=== PATIENT | male | born 1965 | race Caucasian/White ===

== ENCOUNTER 2021-02-12 09:23 | Emergency (ER) | payer OTHER ==
[2021-02-12 10:58] LABS: HEMOGLOBIN 14.7 gm/dl (14.0-17.5); RED BLOOD COUNT 4.9 M/UL (4.20-5.50); WHITE BLOOD COUNT 8.2 K/UL (4.5-11.0)
[2021-02-12 11:31] LABS: BUN/CREATININE RATIO 11 (0-10)
[2021-02-12] MEDS ORDERED: MOBIC15 MG PO (14:44)
[2021-02-12] MEDS ORDERED: CYCLOBENZAPRINE5 MG PO (14:44)
== END 2021-02-12 14:57 | disposition home or self-care (01) ==
LOC: ER1 09:23
PROVIDERS: Physician Assistant
DX: R07.89 Other chest pain (principal); I87.2 Venous insufficiency (chronic) (peripheral); F17.290 Nicotine dependence, other tobacco product, uncomplicated
CPT/HCPCS: 71045; 80053; 82550; 82553; 83874; 84484; 85025; 85379; 93005; 93971; 96374; 99285; J1885